=== PATIENT | female | born 1990 | race Caucasian/White ===

== ENCOUNTER 2018-08-21 18:03 | Emergency (ER) | payer OTHER ==
[2018-08-21] MEDS ORDERED: VALIUM 2 MG TAB2 MG PO (18:32)
[2018-08-21] MEDS ORDERED: OMEPRAZOLE40 MG PO (18:33)
[2018-08-21] MEDS ORDERED: VALTREX1000 MG PO (18:33)
--- NOTE | 2018-08-21 19:35 | NUR ---
DR. BLACK NOTIFIED AND 1:1 SITTER OBSERVATION ORDERED. SITTER AT BEDSIDE. NOTIFIED CHARGE NURSE AND ATTENDING IN REGARDS TO ASSESSMENT FINDINGS . RESOURCES GIVEN TO PATIENT AND SAFETY PLAN INTTIATED.
[2018-08-21] MEDS ORDERED: ROBAXIN500 MG PO (19:51)
[2018-08-21 20:13] VITALS: BP 129/80
--- NOTE | 2018-08-21 20:14 | NUR ---
PATIENT IS BEING DISCHARGED FROM THE [facility]. PATIENT WAS 1:1 SITTER OBSERVATION AT TIME INTIATED. DOCTOR TREATED PATIENT AND DISCHARGED. PT SCORED HIGH ON ASSESSMENT. PT STATED SHE RECENTLY DISCHARGED FROM [facility]. SHE WAS TREATED FOR SI. NO ACTIVE THOUGHT OF SI. PAST THOUGHTS YES AND SEEKED TREATMENT. 1:1 SITTER D/C'D DUE TO PATIENT DISCHARGING. PAPERWORK: SAFETY PLAN AND FLYER FOR SI HOTLINE NUMBERS. PATIENT ACCEPTED. GIVEN TO PATIENT.
== END 2018-08-21 20:13 | disposition home or self-care (01) ==
LOC: D.ER 18:03
DX: M54.5 Low back pain (principal)